=== PATIENT | male | born 1950 | race Caucasian/White ===

== ENCOUNTER 2023-04-04 13:29 | Emergency (ER) | payer OTHER, MEDICAID ==
[~2023-04-04] VITALS: Ht 167.6 cm; Wt 83.5 kg
[2023-04-04 13:37] VITALS: BP_SYST 156; PULSE 70; RESP 16; TEMP 97; O2SAT 96
[2023-04-04] MEDS ORDERED: LACT10SO7 PO (14:01)
[2023-04-04] MEDS ORDERED: ASPI-524 PO (14:01)
[2023-04-04] MEDS ORDERED: POLY15DR31 BOTH EYES (14:01)
[2023-04-04] MEDS ORDERED: LIDO700A30 TP (14:01)
[2023-04-04] MEDS ORDERED: ALBU0.63 INH (14:01)
[2023-04-04] MEDS ORDERED: CALC500T87 PO (14:01)
[2023-04-04] MEDS ORDERED: SEVE800T8 PO (14:01)
[2023-04-04] MEDS ORDERED: SITA25TA3 PO (14:01)
[2023-04-04] MEDS ORDERED: TRAM-350 PO (14:01)
[2023-04-04] MEDS ORDERED: CHOL50004 PO (14:01)
[2023-04-04] MEDS ORDERED: GABA-531 PO (14:01)
[2023-04-04] MEDS ORDERED: HYDR-3919 PO (14:01)
[2023-04-04] MEDS ORDERED: NALO4SPR INH (14:01)
[2023-04-04] MEDS ORDERED: HYDR-4039 PO ×2 (14:01)
[2023-04-04] MEDS ORDERED: CARV6.2554 PO (14:01)
[2023-04-04] MEDS ORDERED: DOCU-156 PO (14:01)
[2023-04-04] MEDS ORDERED: INSU100V10 SUBCUT (14:01)
[2023-04-04] MEDS ORDERED: LOSA100T4 PO (14:01)
[2023-04-04] MEDS ORDERED: NOR10 PO (14:01)
[2023-04-04 14:38] LABS: BASOPHILS # (AUTO) 0.1 K/uL (0.0-0.2); BASOPHILS % (AUTO) 1.4 % (0.0-2.0); EOSINOPHILS # (AUTO) 0.5 K/uL (0.0-0.4); EOSINOPHILS % (AUTO) 7.4 % (0.0-4.0); HEMATOCRIT 35.3 % (36-54); HEMOGLOBIN 11.3 g/dL (14.0-18.0); LYMPHOCYTES # (AUTO) 0.9 K/uL (1.0-5.5); LYMPHOCYTES % (AUTO) 13.1 % (20.5-51.5); MEAN CORPUSCULAR HEMOGLOBIN 30 pg (27-31); MEAN CORPUSCULAR HGB CONC 32 % (32-36); MEAN CORPUSCULAR VOLUME 92 fL (79.0-98.0); MONOCYTES # (AUTO) 0.9 K/uL (0.0-1.0); NEUTROPHILS # (AUTO) 4.3 K/uL (1.8-7.7); NEUTROPHILS % (AUTO) 65.1 % (40.0-70.0); PLATELET COUNT (AUTO) 241 K/uL (130-430); RED BLOOD CELL COUNT(AUTO) 3.85 MIL/uL (4.2-6.2); RED CELL DISTRIBUTION WIDTH 15.3 % (9.0-15.0); WHITE BLOOD COUNT (AUTO) 6.6 K/uL (4.8-10.8)
[2023-04-04 14:47] LABS: ANION GAP 9 (5-15); CARBON DIOXIDE 27 mmol/L (23-29); CHLORIDE 97 mmol/L (98-107); GLUCOSE 116 mg/dL (74-106); POTASSIUM 5.5 mmol/L (3.5-5.1); SODIUM SERUM 133 mmol/L (136-145); UREA NITROGEN, BLOOD 53 mg/dL (8-21)
[2023-04-04 14:52] LABS: ALBUMIN 2.4 g/dL (3.4-4.8); ASPARTATE AMINOTRANSFERASE 13 U/L (10-37); INR 1.1 (0.80-1.20); PROTHROMBIN TIME 11.8 SECS (9.5-12.5); TOTAL BILIRUBIN 0.4 mg/dL (0.0-1.0); TOTAL PROTEIN, SERUM 7.6 g/dL (6.4-8.3)
[2023-04-04 15:01] LABS: ALANINE AMINOTRANSFERASE 6 U/L (12-78)
[2023-04-04 17:26] VITALS: BP_SYST 148; PULSE 68; RESP 16; TEMP 98; O2SAT 97
== END 2023-04-04 17:32 ==
LOC: SED 13:29
DX: D63.1 Anemia in chronic kidney disease (principal); R79.9 Abnormal finding of blood chemistry, unspecified; R53.1 Weakness; E11.9 Type 2 diabetes mellitus without complications; I10 Essential (primary) hypertension; Z79.4 Long term (current) use of insulin; Z79.899 Other long term (current) drug therapy
CPT/HCPCS: 36415; 80053; 85025; 85610-TC; 86886; 86900; 86901; 99283